=== PATIENT | female | born 1955 | race Caucasian/White ===

== ENCOUNTER 2019-06-02 14:37 | Emergency (ER) | payer OTHER ==
[~2019-06-02] VITALS: Ht 149.9 cm; Wt 63.5 kg
== END 2019-06-02 18:03 | disposition home or self-care (01) ==
LOC: ER 14:37
DX: K60.0 Acute anal fissure (principal)

== ENCOUNTER → 2019-08-13 | Outpatient (CLI) | payer OTHER | END | disposition home or self-care (01) | LOC: MAMO-SONO 09:00 → SONOGRAMA 09:11 | DX: E04.2 Nontoxic multinodular goiter (principal) ==